=== PATIENT | female | born 1980 | race Hispanic/Latino ===

== ENCOUNTER 2017-01-14 12:09 | Emergency (ER) | payer MEDICAID ==
[2017-01-14 13:06] LABS: Basophils % (Auto) 0.5 % (0.0-1.8); Eosinophils % (Auto) 3.5 % (0.0-4.3); Hematocrit 41.6 % (30.3-42.9); Hemoglobin 13.2 gm/dl (10.1-14.3); Mean Corpuscular HGB Conc 32 % (30-34); Mean Corpuscular Volume 77 fl (79-97); Platelet Count 240 K/mm3 (140-440); Red Blood Count 5.39 M/mm3 (3.65-5.03); Red Cell Distribution Width 17.1 % (13.2-15.2); White Blood Count 9.6 K/mm3 (4.5-11.0)
--- NOTE | 2017-01-14 13:07 | XRay Report ---
AP CHEST: HISTORY: Shortness of breath AP view of the chest demonstrates a normal mediastinal and cardiac contour with clear lungs and normal bony and soft tissue structures. IMPRESSION: Unremarkable AP chest.
[2017-01-14 13:13] LABS: Mean Corpuscular Hemoglobin 25 pg (28-32)
--- NOTE | 2017-01-14 13:17 | Emergency Department Report ---
Entered by KAY BERRIOS, acting as scribe for ABRIL DODGE PA. Chief Complaint: Dyspnea/Respdistress Stated Complaint: PAIN/SWELLING IN LEGS/CHEST/SOB Time Seen by Provider: 01/14/17 12:53 - HPI History of Present Illness: Pt c/o bilateral leg pain and swelling that began 1 weeks ago. Reports SOB that began 3 days ago. Reports intermittent dyspnea. Reports chest pain, which she rates a 10/10 in severity. Reports dizziness. Notes all stated symptoms began intermittently 2 weeks ago. PMHx of obesity, HTN, high cholesterol, and depression. Notes recent diabetes diagnoses with no current medication. Notes compliancy with a diabetic diet. Pt's blood pressure is currently 196/121 in triage. - ROS Review of Systems: All systems are negative unless stated in the HPI above. - Exam Vital Signs: Vital Signs 01/14/17 12:17 Temperature 97.6 F Pulse Rate 109 H Respiratory 22 Rate Blood Pressure 196/121 O2 Sat by Pulse 94 Oximetry Physical Exam: GENERAL: Patient is alert and oriented x 3. No apparent distress, normal gait, atraumatic. LUNGS: Symmetrical with respiration. No wheezing, rales or crackles, CTAB. HEART: Tachycardic. No murmurs, rubs, or gallops. SKIN: Warm and dry. No lesions, ulceration or induration present MSE screening note: Focused history and physical exam performed. Due to findings the following was ordered: ED Medical Decision Making - EKG Data EKG shows normal: sinus rhythm Rate: tachycardia - Medical Decision Making Patient seen by provider in triage area. EKG shows a sinus tachycardic rhythm with a left atrial enlargement. Blood work and UA have been done on patient will be sent in. Patient will be sent to the main ED side for further analysis and treatment by another provider. ED Disposition for MSE Condition: Stable This documentation as recorded by the scribe,KAY BERRIOS,accurately reflects the service I personally performed and the decisions made by me, ABRIL DODGE PA.
[2017-01-14 13:20] LABS: Anion Gap 16 mmol/L; Blood Urea Nitrogen 14 mg/dL (7-17); Calcium 8.8 mg/dL (8.4-10.2); Carbon Dioxide 28 mmol/L (22-30); Chloride 98.7 mmol/L (98-107); Glucose 167 mg/dL (65-100); Sodium 139 mmol/L (137-145)
[2017-01-14 19:37] VITALS: BP 160/86
[2017-01-14] MEDS ORDERED: LASIX PO ONE (20:39)
[2017-01-14] MEDS ORDERED: MORPHINE IM ONE (20:39)
[2017-01-14] MEDS ORDERED: CATAPRES PO ONE (20:40)
--- NOTE | 2017-01-14 20:56 | Emergency Department Report ---
HPI - General Chief Complaint: Dyspnea/Respdistress Time Seen by Provider: 01/14/17 13:16 - HPI HPI: The patient is a 36 of female presents for evaluation of chest pain and bilateral lower leg pain. The patient reports chest pain and bilateral lower leg pain for the past 10 days, her chest pain is sharp in quality, 10/10 in severity, constant for the past one day, exacerbated with movement. Her leg pain has been throbbing quality, 10/10 in severity, exacerbated with ambulation , and associated with mild swelling to the bilateral legs. The patient denies fever, trauma to the chest or legs, dyspnea, syncope, hemoptysis, unilateral leg swelling, calf muscle pain, paresthesias, motor deficit in the legs, oral contraception abuse, history of DVT or PE, history of recent surgery, history of recent cancer. ED Past Medical Hx - Past Medical History Previous Medical History?: Yes Hx Hypertension: Yes Hx Heart Attack/AMI: No Hx Congestive Heart Failure: No Hx Diabetes: No Hx Deep Vein Thrombosis: No Hx Psychiatric Treatment: Yes (depression) Hx Asthma: No Hx COPD: No Hx HIV: No Additional medical history: MORBID OBESITY, hyperlipidemia - Surgical History Past Surgical History?: Yes Hx Coronary Stent: No Hx Pacemaker: No Hx Internal Defibrillator: No Hx Cholecystectomy: Yes Additional Surgical History: X 8 - Social History Smoking Status: Never Smoker Substance Use Type: Prescribed - Medications Home Medications: Home Medications Medication Instructions Recorded Confirmed Last Taken Type ALPRAZolam [Xanax TAB] 1 mg PO BID 09/04/16 09/04/16 09/03/16 History Sertraline [Zoloft] 100 mg PO QDAY 09/04/16 09/04/16 09/03/16 History traZODone [Desyrel] 50 mg PO QHS 09/04/16 09/04/16 09/03/16 History ALBUTEROL Inhaler [ProAir HFA 1 puff IH QID PRN #1 inhalation 09/08/16 Unknown Rx Inhaler] AtorvaSTATin [Lipitor] 10 mg PO QHS #30 tablet 09/08/16 Unknown Rx AtorvaSTATin [Lipitor] 10 mg PO QHS #30 tablet 09/08/16 Unknown Rx Benzonatate [Tessalon Perles] 100 mg PO Q8HR #14 capsule 09/08/16 Unknown Rx Metoprolol [Lopressor TAB] 50 mg PO BID #120 tablet 09/08/16 Unknown Rx oxyCODONE /ACETAMINOPHEN [Percocet 1 tab PO Q6H PRN #10 tablet 09/08/16 Unknown Rx 5/325 mg] Furosemide [Lasix] 20 mg PO QDAY #30 tablet 01/14/17 Unknown Rx HYDROcodone/APAP 5-325 [[place] 1 each PO Q6HR PRN #12 tablet 01/14/17 Unknown Rx 5/325] ED Review of Systems ROS: Stated complaint: PAIN/SWELLING IN LEGS/CHEST/SOB Other details as noted in HPI Constitutional: denies: fever ENT: denies: throat or neck pain Respiratory: denies: shortness of breath Cardiovascular: reports chest pain Endocrine: denies unexplained weight loss or gain Gastrointestinal: denies: abdominal pain, nausea Genitourinary: denies: dysuria Musculoskeletal: reports leg pain and swelling Skin: denies: rash Neurological: denies: headache Hematological/Lymphatic: denies: easy bleeding or easy bruising Psych: denies sadness or hopelessness Physical Exam - Physical Exam Vital Signs: Vital Signs 01/14/17 01/14/17 12:17 19:34 Temperature 97.6 F Pulse Rate 109 H 99 H Respiratory 22 15 Rate Blood Pressure 196/121 Blood Pressure 160/86 [Left] O2 Sat by Pulse 94 97 Oximetry Physical Exam: General: well-nourished, well-developed, no acute distress Head: Normocephalic, atraumatic Eyes: normal sclera ENT: Mucous membranes are pink and moist Neck: trachea midline, neck supple, No neck stiffness, no cervical adenopathy Respiratory: Breath sounds equal bilaterally, no wheezing, rales, or rhonchi Cardio: S1 and S2 present, no murmurs, rubs, gallops, capillary refill is brisk Abdomen: Normoactive bowel sounds, soft abdomen, no rigidity, no guarding or rebound tenderness Musc: 1+ pitting edema of bilateral lower legs Skin: No rash Neuro: no facial drooping, normal speech Psych: Normal affect ED Course Vital Signs 01/14/17 01/14/17 12:17 19:34 Temperature 97.6 F Pulse Rate 109 H 99 H Respiratory 22 15 Rate Blood Pressure 196/121 Blood Pressure 160/86 [Left] O2 Sat by Pulse 94 97 Oximetry ED Medical Decision Making - Lab Data Result diagrams: 01/14/17 12:47 01/14/17 12:47 - Medical Decision Making The patient was seen and examined by myself. The patient is placed on a cardiac monitor technician and continuous pulse ox. On initial evaluation, the patient was found to be in no distress. EKG was negative for findings suggestive of acute cardiac infarct. Labs and imaging are obtained. Chest x-ray is negative for pneumothorax, focal consolidation, pulmonary vascular congestion, pleural effusion, or other obvious acute cardiopulmonary disease process. The patient given po Lasix for her leg swelling and IM morphine for her pain. Lab results were non-concerning including levels of troponin, WBC, hemoglobin, hematocrit, electrolytes, renal function. The patient was reevaluated and reported that their symptoms were markedly improved. As the patient has a KELI risk score less than 2, and a well's score less than 2, the patient is at low risk of ACS or pulmonary emboli etiology of their symptoms. The patient is stable for discharge with outpatient follow-up. The patient is given follow-up and return instructions. The patient expressed understanding and agreed with the plan. The patient is discharged in stable condition. Critical care attestation.: If time is entered above; I have spent that time in minutes in the direct care of this critically ill patient, excluding procedure time. ED Disposition Clinical Impression: Acute chest pain, Leg swelling Disposition: DISCHARGED TO HOME OR SELFCARE Is pt being admited?: No Does the pt Need Aspirin: No Condition: Stable Instructions: Chest Pain (ED), Leg Edema (ED) Prescriptions: Furosemide [Lasix] 20 mg PO QDAY #30 tablet HYDROcodone/APAP 5-325 [[place] 5/325] 1 each PO Q6HR PRN #12 tablet PRN Reason: Pain Referrals: PRIMARY MD SUN [Primary Care Provider] - 3-5 Days EMMA ANDERSON MD [Staff Physician] - 3-5 Days Time of Disposition: 20:41
== END 2017-01-14 22:10 | disposition home or self-care (01) ==
LOC: ED 12:09
DX: R07.9 Chest pain, unspecified (principal); R22.43 Localized swelling, mass and lump, lower limb, bilateral; I10 Essential (primary) hypertension; F32.9 Major depressive disorder, single episode, unspecified; E66.01 Morbid (severe) obesity due to excess calories; E78.5 Hyperlipidemia, unspecified
CPT/HCPCS: 36415; 71020; 80048; 84484; 85025; 93005; 93010; 96372; 99284; J2270

== ENCOUNTER 2017-11-12 06:27 | Day surgery (SDC) | payer MEDICAID ==
[2017-11-12] MEDS ORDERED: WATER FOR IRRIG STERILE IR ONE (07:21)
[2017-11-12] MEDS ORDERED: HURRICAINE ONE 20% TOPICAL SPRAY MM ×2 (07:31→08:14)
[2017-11-12] MEDS ORDERED: NACL 0.9% 1000 ML 1,000 ML IV SCH (08:00)
--- NOTE | 2017-11-12 08:20 | Anesthesia Consultation ---
Anesthesia Consult and Med Hx Date of service: 11/12/17 - Airway Anesthetic Teeth Evaluation: Good ROM Head & Neck: Adequate Mental/Hyoid Distance: Adequate Mallampati Class: Class II Intubation Access Assessment: Probably Good - Pulmonary Exam CTA: Yes - Cardiac Exam Cardiac Exam: RRR - Pre-Operative Health Status ASA Pre-Surgery Classification: ASA3 Proposed Anesthetic Plan: MAC - Pulmonary Hx Pneumonia: Yes Hx Sleep Apnea: Yes (Cpap) - Cardiovascular System Hx Hypertension: Yes - Other Systems Hx Obesity: Yes
[2017-11-12] MEDS ORDERED: DIPRIVAN 10 MG/ML IV ONE ×2 (08:21)
[2017-11-12] MEDS ORDERED: KETALAR ONE (08:21)
--- NOTE | 2017-11-12 08:21 | Anesthesia Day of Surgery ---
Anesthesia Day of Surgery - Day of Surgery Patient Examined: Yes Patient H&P Reviewed: Yes Patient is NPO: Yes Beta Blockers: Yes
--- NOTE | 2017-11-12 08:39 | Operative Report ---
Operative Report Operative Report: OPERATIVE REPORT - EGD DATE 11/12/17 SURGERY: Upper endoscopy. SURGEON: Dr. Kimball GIS SOFTWARE DEVELOPER: Fish Mosqueda DO PRE OP DX: Morbid obesity, dyspepsia POST OP DX: antral polyps, same as preop TYPE OF ANESTHESIA: MAC. ESTIMATED BLOOD LOSS: None. COMPLICATIONS: None. SPECIMENS REMOVED: antral polyp FINDINGS: 1. Small hiatal hernia. 2. antral polyp INDICATIONS:INDICATION FOR PROCEDURE: Patient is a 37-year-old female with a long history of morbid obesity. She is planned to have a weight loss procedure and is here for preoperative planning EGD. PROCEDURE DETAILS: After consent was reviewed, patient was taken back to the operating room where patient was placed in the left lateral decubitus position and a bite block was placed in the mouth. After a time-out was called, MAC anesthesia was initiated. I then passed the endoscope into her oropharynx, into her esophagus, visualized the entire esophagus, which was all within normal limits. I then visualized the stomach and found antral polyps. A biopsy was done on one of the polyps. The first portion of the duodenum showed no abnormalities I could clearly visualize. I then retroflexed the scope in the stomach and visualized the hiatus and I could see a small hiatal hernia. I then desufflated the stomach and removed the endoscope. Patient tolerated procedure well and was transferred to recovery room in good and stable condition.
--- NOTE | 2017-11-12 08:41 | Discharge Summary ---
Providers - Providers Attending physician: JOSH MUHAMMAD Primary care physician: MATILDE COVINGTON Hospitalization Procedures: egd with biopsy Hospital course: 37 y.o. F presented to the EGD area for upper endoscopy. She tolerated the procedure well. She was discharged home the same day. Disposition: - TO HOME OR SELFCARE Core Measure Documentation - Palliative Care Palliative Care/ Comfort Measures: Not Applicable - Core Measures Any of the following diagnoses?: none Exam - Physical Exam Narrative exam: same as prior - Constitutional Vitals: Temp Pulse Resp BP Pulse Ox 97.8 F 101 H 17 188/106 95 11/12/17 07:10 11/12/17 07:10 11/12/17 07:10 11/12/17 07:10 11/12/17 07:10 Plan Additional Instructions: follow up for surgery. Bring cpap Follow up with: MATILDE COVINGTON III, [employer] [Primary Care Provider] - 7 Days
[2017-11-12 12:32] VITALS: BP 188/93
--- NOTE | 2017-11-12 14:07 | Post Anesthesia Evaluation ---
- Post Anesthesia Evaluation Patient Participated: Yes Airway Patent: Yes Stable Respiratory Function: Yes Nausea/Vomiting: No Temp > 96.8F: Yes Pain Manageable: Yes Adequeate Hydration: Yes Anesthesia Complications: No
[2017-11-12] MEDS ORDERED: HURRICAINE ONE 20% TOPICAL SPRAY MM NR (16:00)
== END 2017-11-12 06:28 | disposition home or self-care (01) ==
LOC: GIO 06:27
PROVIDERS: ATTEND Surgery
DX: K29.50 Unspecified chronic gastritis without bleeding (principal); B96.81 Helicobacter pylori [H. pylori] as the cause of diseases classified elsewhere; K44.9 Diaphragmatic hernia without obstruction or gangrene; K31.7 Polyp of stomach and duodenum; G47.30 Sleep apnea, unspecified; I10 Essential (primary) hypertension; E66.01 Morbid (severe) obesity due to excess calories; Z68.45 Body mass index [BMI] 70 or greater, adult; Z99.89 Dependence on other enabling machines and devices
CPT/HCPCS: 43239; 81025; 88305; 88342; J2704; J7030

== ENCOUNTER 2018-05-18 22:09 | Emergency (ER) | payer MEDICAID ==
[2018-05-18 22:37] VITALS: BP 162/100
[2018-05-18 23:47] LABS: Basophils # (Auto) 0.1 K/mm3 (0.0-0.1); Basophils % (Auto) 0.6 % (0.0-1.8); Eosinophils # (Auto) 0.3 K/mm3 (0.0-0.4); Eosinophils % (Auto) 2.2 % (0.0-4.3); Hematocrit 40.8 % (30.3-42.9); Hemoglobin 13.4 gm/dl (10.1-14.3); Lymphocytes % (Auto) 22.7 % (13.4-35.0); Mean Corpuscular HGB Conc 33 % (30-34); Mean Corpuscular Hemoglobin 28 pg (28-32); Mean Corpuscular Volume 85 fl (79-97); Monocytes # (Auto) 0.8 K/mm3 (0.0-0.8); Monocytes % (Auto) 5.9 % (0.0-7.3); Platelet Count 295 K/mm3 (140-440)
[2018-05-19 00:23] LABS: BUN/Creatinine Ratio 17; Blood Urea Nitrogen 10 mg/dL (7-17); Calcium 8.7 mg/dL (8.4-10.2); Hemolysis Index 115
== END 2018-05-18 23:45 | disposition left against medical advice (07) ==
LOC: ED 22:09
DX: R07.89 Other chest pain (principal); Z53.21 Procedure and treatment not carried out due to patient leaving prior to being seen by health care provider
CPT/HCPCS: 36415; 80048; 84484; 84703; 85025; 93005; 93010

== ENCOUNTER 2019-02-09 09:40 | Outpatient (CLI) | payer MEDICAID ==
[2019-02-09 11:18] LABS: Blood Urea Nitrogen 11 mg/dL (7-17)
--- NOTE | 2019-02-09 14:26 | Cat Scan Report ---
CT ABDOMEN PELVIS WITH CONTRAST: HISTORY: Generalized abdominal pain. COMPARISON: none. TECHNIQUE: Helical CT in 1.25mm intervals following IV contrast. Sagittal and coronal reconstructions. FINDINGS: Lung bases: Normal. Liver: Normal. Biliary system: Cholecystectomy. Pancreas: Normal. Spleen: Normal. Kidneys/ureters/bladder: Normal. Adrenal glands: Normal. Aorta: Normal. Intestines: Surgical changes are noted in the proximal stomach, correlate with history. Surgical suture line is also noted in the mid small bowel. There is no evidence for obstruction, free air or focal inflammation. There are scattered diverticula in the distal colon. No inflammatory changes. Appendix: Normal. Pelvic viscera: The uterus is unremarkable. Bilateral Essure devices are identified. A right ovarian cyst measures 4.2 cm. A left ovarian cyst measures 5.2 cm. Ascites: None. Adenopathy: None. Musculoskeletal: Intact. Mild thoracolumbar spondylosis. IMPRESSION: No acute inflammatory process. Surgical changes as described which appear unremarkable. Bilateral ovarian cysts. Mild diverticulosis of the distal colon.
== END 2019-02-09 09:41 | disposition home or self-care (01) ==
LOC: CT 09:40
PROVIDERS: ATTEND Specialist
DX: K57.30 Diverticulosis of large intestine without perforation or abscess without bleeding (principal); N83.202 Unspecified ovarian cyst, left side; N83.201 Unspecified ovarian cyst, right side; M47.815 Spondylosis without myelopathy or radiculopathy, thoracolumbar region; E78.00 Pure hypercholesterolemia, unspecified; I10 Essential (primary) hypertension; E66.9 Obesity, unspecified; E11.9 Type 2 diabetes mellitus without complications; Z98.890 Other specified postprocedural states
CPT/HCPCS: 36415; 74177; 82565; 84520; Q9967

== ENCOUNTER 2021-01-16 02:40 | Emergency (ER) | payer MEDICAID ==
--- NOTE | 2021-01-16 04:23 | XRay Report ---
CLINICAL DATA: Pain - fall TECHNICAL DATA: AP and lateral view. FINDINGS: No pathologic subluxation or acute fracture identified. IMPRESSION: No pathologic subluxation or acute fracture identified. Signer Name: Agustín Hopson MD Signed: 01/16/2021 4:19 AM Workstation Name: [id number]
--- NOTE | 2021-01-16 04:24 | XRay Report ---
CLINICAL DATA: Fall - pain TECHNICAL DATA: AP and lateral views lumbar spine. FINDINGS: The bone mineralization is normal. Vertebral body heights are normal. Intervertebral disc spaces are well maintained except for intervertebral disc space narrowing L4-L5. Pedicles and spinous processes are normal in alignment. SI joints and sacrum are normal. IMPRESSION: Degenerative changes as noted Signer Name: Agustín Hopson MD Signed: 01/16/2021 4:20 AM Workstation Name: [id number]
[2021-01-16] MEDS ORDERED: ACETAMINOPHEN 500 MG TAB PO ONE (05:19)
--- NOTE | 2021-01-16 05:26 | Emergency Department Report ---
ED Fall HPI - General Chief Complaint: Back Pain/Injury Stated Complaint: FELL/BACK PAIN Source: patient Mode of arrival: Ambulatory - History of Present Illness Initial Comments: Patient is a 40-year-old female with a history of hypertension, lkr-nxifpoi-pqyqycosd diabetes, morbid obesity, chronic osteoarthritis, anxiety and depression and hyperlipidemia who presents to the ED with complaint of acute onset persistent severe low back pain and coccygeal pain after she fell off a water slide and landed on her back 2 weeks ago during a birthday green party of a grandchild. Patient states that the pain has been progressively getting worse and especially in the last 2 days she has not been able to sleep because of worsening pain. Patient denies dizziness, syncope, dysuria, urinary frequency and urgency, hematuria, numbness and tingling or weakness of lower extremities bilaterally, urinary retention, bowel incontinence, chest pain or shortness of breath, head or neck injuries and abdominal pain. MD Complaint: fall, other (lower back pain; coccygeal pain) -: Sudden, week(s) (2) Fall From: chair (fell off a water slide) Fall Witnessed: yes, by family Place Fall Occurred: other (PARK) Loss of Consciousness: none Prolonged Down Time?: no Symptoms Prior to Fall: none Location: back (lower ), other (coccygeal area) Severity: severe Severity scale (0 -10): 8 Quality: sharp, aching Context: tripped/slipped Associated Symptoms: denies. denies: headache, neck pain, numbness, weakness, chest paint, shortness of breath, abdominal pain, hematuria, unable to walk, lightheaded, vertigo, confusion - Related Data Home Medications Medication Instructions Recorded Confirmed Last Taken ALPRAZolam [Xanax TAB] 1 mg PO BID 09/04/16 06/10/18 06/09/18 Sertraline [Zoloft] 100 mg PO QDAY 09/04/16 06/10/18 06/09/18 traZODone [Desyrel] 50 mg PO QHS 09/04/16 06/09/18 11/18/17 DULoxetine [Cymbalta] 60 mg PO QDAY 11/12/17 06/09/18 Unknown Losartan [Cozaar] 50 mg PO QDAY 11/12/17 06/10/18 06/09/18 cloNIDine [Catapres] 0.2 mg PO BID 11/12/17 06/09/18 Unknown Ondansetron [Zofran TAB] 4 mg PO TID 06/09/18 06/10/18 06/09/18 Previous Rx's Medication Instructions Recorded Last Taken Type Albuterol Mdi (or & Nicu Only) 1 puff IH QID PRN #1 inhalation 09/08/16 Unknown Rx [ProAir HFA Inhaler] AtorvaSTATin 10 mg PO QHS #30 tablet 09/08/16 06/09/18 Rx Metoprolol [Lopressor TAB] 50 mg PO BID #120 tablet 09/08/16 06/10/18 Rx oxyCODONE /ACETAMINOPHEN [Percocet 1 tab PO Q6H PRN #10 tablet 09/08/16 Unknown Rx 5/325 mg] Acetaminophen [Tylenol] 500 mg PO Q6HR PRN #40 tablet 01/16/21 Unknown Rx Allergies Allergy/AdvReac Type Severity Reaction Status Date / Time aspirin AdvReac Unknown Verified 06/10/18 09:32 ED Review of Systems ROS: Stated complaint: FELL/BACK PAIN Other details as noted in HPI Constitutional: denies: chills, fever Eyes: denies: eye pain, eye discharge, vision change ENT: denies: ear pain, throat pain Respiratory: denies: cough, shortness of breath, wheezing Cardiovascular: denies: chest pain, palpitations Endocrine: no symptoms reported Gastrointestinal: denies: abdominal pain, nausea, diarrhea Genitourinary: denies: urgency, dysuria, discharge Musculoskeletal: back pain (lower back pain), arthralgia (coccygeal pain). d enies: joint swelling Skin: denies: rash, lesions Neurological: denies: headache, weakness, paresthesias Psychiatric: denies: anxiety, depression Hematological/Lymphatic: denies: easy bleeding, easy bruising ED Past Medical Hx - Past Medical History Previous Medical History?: Yes Hx Hypertension: Yes Hx Heart Attack/AMI: No Hx Congestive Heart Failure: No Hx Diabetes: Yes (PRE, DIET CONTROLLED) Hx Deep Vein Thrombosis: No Hx Liver Disease: No Hx Renal Disease: No Hx Arthritis: Yes Hx Seizures: No Hx Psychiatric Treatment: Yes (depression) Hx Asthma: No Hx COPD: No Hx HIV: No Additional medical history: MORBID OBESITY, hyperlipidemia - Surgical History Past Surgical History?: Yes Hx Coronary Stent: No Hx Cholecystectomy: Yes Additional Surgical History: X 8, Gastric Bypass - Social History Smoking Status: Current Every Day Smoker Substance Use Type: None - Medications Home Medications: Home Medications Medication Instructions Recorded Confirmed Last Taken Type ALPRAZolam [Xanax TAB] 1 mg PO BID 09/04/16 06/10/18 06/09/18 History Sertraline [Zoloft] 100 mg PO QDAY 09/04/16 06/10/18 06/09/18 History traZODone [Desyrel] 50 mg PO QHS 09/04/16 06/09/18 11/18/17 History Albuterol Mdi (or & Nicu Only) 1 puff IH QID PRN #1 inhalation 09/08/16 06/10/18 Unknown Rx [ProAir HFA Inhaler] AtorvaSTATin 10 mg PO QHS #30 tablet 09/08/16 06/10/18 06/09/18 Rx Metoprolol [Lopressor TAB] 50 mg PO BID #120 tablet 09/08/16 06/10/18 06/10/18 Rx oxyCODONE /ACETAMINOPHEN [Percocet 1 tab PO Q6H PRN #10 tablet 09/08/16 06/10/18 Unknown Rx 5/325 mg] DULoxetine [Cymbalta] 60 mg PO QDAY 11/12/17 06/09/18 Unknown History Losartan [Cozaar] 50 mg PO QDAY 11/12/17 06/10/18 06/09/18 History cloNIDine [Catapres] 0.2 mg PO BID 11/12/17 06/09/18 Unknown History Ondansetron [Zofran TAB] 4 mg PO TID 06/09/18 06/10/18 06/09/18 History Acetaminophen [Tylenol] 500 mg PO Q6HR PRN #40 tablet 01/16/21 Unknown Rx ED Physical Exam - General Limitations: No Limitations General appearance: alert, in no apparent distress - Head Head exam: Present: atraumatic, normocephalic, normal inspection - Eye Eye exam: Present: normal appearance, PERRL, EOMI Pupils: Present: normal accommodation - ENT ENT exam: Present: normal exam, normal orophraynx, mucous membranes moist, TM's normal bilaterally, normal external ear exam - Neck Neck exam: Present: normal inspection, full ROM - Respiratory Respiratory exam: Present: normal lung sounds bilaterally. Absent: respiratory distress, wheezes, rales, rhonchi, chest wall tenderness, accessory muscle use, decreased breath sounds, prolonged expiratory - Cardiovascular Cardiovascular Exam: Present: regular rate, normal rhythm, normal heart sounds. Absent: systolic murmur, diastolic murmur, rubs, gallop - GI/Abdominal GI/Abdominal exam: Present: soft, normal bowel sounds. Absent: tenderness, guarding, hyperactive bowel sounds, hypoactive bowel sounds, organomegaly - Extremities Exam Extremities exam: Present: normal inspection, full ROM, normal capillary refill. Absent: tenderness - Back Exam Back exam: Present: normal inspection, full ROM, tenderness (Palpable lumbosacral paraspinal musculoskeletal tenderness; palpable coccygeal tenderness), muscle spasm, paraspinal tenderness, vertebral tenderness - Neurological Exam Neurological exam: Present: alert, oriented X3, CN II-XII intact, normal gait, reflexes normal - Psychiatric Psychiatric exam: Present: normal affect, normal mood - Skin Skin exam: Present: warm, dry, intact, normal color. Absent: rash ED Course Vital Signs 01/16/21 03:02 Temperature 98.3 F Pulse Rate 82 Respiratory 18 Rate Blood Pressure 150/92 O2 Sat by Pulse 97 Oximetry ED Medical Decision Making - Radiology Data Radiology results: report reviewed, [place] [address] XRay Report Signed Patient: BEATRIS LEYVA MR#: [id number] : 1980 Acct:[id number] Age/Sex: 40 / F ADM Date: 01/16/21 Loc: ED Attending Dr: Ordering Physician: KYLE GARNICA Date of Service: 01/16/21 Procedure(s): XR spine sacrum/coccyx 2+V Accession Number(s): [id number] cc: KYLE GARNICA Fluoro Time In Minutes: CLINICAL DATA: Pain - fall TECHNICAL DATA: AP and lateral view. FINDINGS: No pathologic subluxation or acute fracture identified. IMPRESSION: No pathologic subluxation or acute fracture identified. Signer Name: Agustín Hopson MD Signed: 01/16/2021 4:19 AM Workstation Name: [id number] Transcribed By: STEPHANIE Dictated By: Agustín Hopson MD Electronically Authenticated By: Agustín Hopson MD Signed Date/Time: 01/16/21418 DD/ 7 TD/TT: [facility] [address] [place] [address] XRay Report Signed Patient: BEATRIS LEYVA MR#: [id number] : 1980 Acct:[id number] Age/Sex: 40 / F ADM Date: 01/16/21 Loc: ED Attending Dr: Ordering Physician: KYLE GARNICA Date of Service: 01/16/21 Procedure(s): XR spine lumbosacral 2-3V Accession Number(s): [id number] cc: KYLE GARNICA Fluoro Time In Minutes: CLINICAL DATA: Fall - pain TECHNICAL DATA: AP and lateral views lumbar spine. FINDINGS: The bone mineralization is normal. Vertebral body heights are normal. Intervertebral disc spaces are well maintained except for intervertebral disc space narrowing L4-L5. Pedicles and spinous processes are normal in alignment. SI joints and sacrum are normal. IMPRESSION: Degenerative changes as noted Signer Name: Agustín Hopson MD Signed: 01/16/2021 4:20 AM Workstation Name: [id number] Transcribed By: WG Dictated By: Agustín Hopson MD Electronically Authenticated By: Agustín Hopson MD Signed Date/Time: 01/16/21419 DD/ 8 TD/TT: Print - Medical Decision Making This is a 40-year-old female with a history of hypertension, tby-mqrbyzk-ccbysndwn diabetes, morbid obesity, chronic osteoarthritis, anxiety and depression and hyperlipidemia who presents to the ED with complaint of acute onset persistent severe low back pain and coccygeal pain after she fell off a water slide and landed on her back 2 weeks ago during a birthday green party of a grandchild. Patient states that the pain has been progressively getting worse and especially in the last 2 days she has not been able to sleep because of worsening pain. In the ED, patient is alert and oriented x3 and is not in any distress. Patient was treated for pain in the ED and L-spine x-ray showed no acute fractures or subluxations but chronic degenerative lumbar disc disease. The coccygeal x-ray showed no acute fractures or subluxations but degenerative disc disease. Patient's injuries are likely musculoskeletal based on the history and physical exam findings as well as imaging reports. Patient was therefore discharged home on pain medications and advised to follow-up with her primary care physician in 5 to 7 days for reevaluation or return to the ED immediately if symptoms get worse. - Differential Diagnosis coccygeal fracture; lumbar contusion; Back injury; Muscle spasm; Critical care attestation.: If time is entered above; I have spent that time in minutes in the direct care of this critically ill patient, excluding procedure time. ED Disposition Clinical Impression: Spasm of muscle of lower back Coccygeal contusion Qualifiers: Encounter type: initial encounter Qualified Code(s): S30.0XXA - Contusion of lower back and pelvis, initial encounter Lumbar contusion Qualifiers: Encounter type: initial encounter Qualified Code(s): S30.0XXA - Contusion of lower back and pelvis, initial encounter Disposition: DC-01 TO HOME OR SELFCARE Is pt being admited?: No Does the pt Need Aspirin: No Condition: Stable Instructions: Muscle Cramps and Spasms, [id number]-[id number], Contusion, Qdia-wr-[id number], Tailbone Injury, Ptmh-ih-[id number] Additional Instructions: The L-spine x-ray and the coccygeal x-ray showed no acute fractures or subluxations but degenerative disc disease. Therefore take pain medications with food, drink plenty of fluids and follow-up with your primary care physician in 5 to 7 days for reevaluation. Return to the ED immediately if symptoms get worse. Prescriptions: Acetaminophen [Tylenol] 500 mg PO Q6HR PRN #40 tablet PRN Reason: Pain , Severe (7-10) Referrals: [facility] [Provider Group] - 3-5 Days Time of Disposition: 05:27 Print Language: AZERI
[2021-01-16 06:30] VITALS: BP 140/84
== END 2021-01-16 06:30 | disposition home or self-care (01) ==
LOC: ED 02:40
DX: S30.0XXA Contusion of lower back and pelvis, initial encounter (principal); M62.830 Muscle spasm of back; I10 Essential (primary) hypertension; E11.9 Type 2 diabetes mellitus without complications; M19.91 Primary osteoarthritis, unspecified site; F32.9 Major depressive disorder, single episode, unspecified; F17.200 Nicotine dependence, unspecified, uncomplicated; Z98.890 Other specified postprocedural states; Z79.899 Other long term (current) drug therapy; Z88.6 Allergy status to analgesic agent; W01.0XXA Fall on same level from slipping, tripping and stumbling without subsequent striking against object, initial encounter; Y93.89 Activity, other specified; Y92.89 Other specified places as the place of occurrence of the external cause; Y99.8 Other external cause status
CPT/HCPCS: 72100; 72220

== ENCOUNTER 2022-04-03 22:18 | Emergency (ER) | payer MEDICAID ==
[2022-04-03 23:02] VITALS: BP 169/120
--- NOTE | 2022-04-03 23:47 | XRay Report ---
CHEST 2 VIEWS INDICATION / CLINICAL INFORMATION: Chest Pain. COMPARISON: None available. FINDINGS: SUPPORT DEVICES: None. HEART / MEDIASTINUM: No significant abnormality. LUNGS / PLEURA: No significant pulmonary or pleural abnormality. No pneumothorax. ADDITIONAL FINDINGS: No significant additional findings. IMPRESSION: 1. No acute findings. Signer Name: Jonas Bundy MD Signed: 04/03/2022 11:42 PM Workstation Name: [id number]
[2022-04-03 23:57] LABS: Basophils # (Auto) 0.1 K/mm3 (0.0-0.1); Basophils % (Auto) 0.5 % (0.0-1.8); Eosinophils # (Auto) 0.4 K/mm3 (0.0-0.4); Hematocrit 39.3 % (30.3-42.9); Lymphocytes # (Auto) 3.4 K/mm3 (1.2-5.4); Lymphocytes % (Auto) 31.8 % (13.4-35.0); Mean Corpuscular HGB Conc 33 % (30-34); Mean Corpuscular Volume 86 fl (79-97); Monocytes # (Auto) 0.9 K/mm3 (0.0-0.8); Monocytes % (Auto) 8.5 % (0.0-7.3); Platelet Count 246 K/mm3 (140-440); Red Blood Count 4.56 M/mm3 (3.65-5.03); Red Cell Distribution Width 15.4 % (13.2-15.2)
[2022-04-04 00:33] LABS: Blood Urea Nitrogen 4 mg/dL (7-17); Calcium 8.5 mg/dL (8.4-10.2); Hemolysis Index 2
[2022-04-04 00:34] LABS: BUN/Creatinine Ratio 8
--- NOTE | 2022-04-04 13:16 | Electrocardiograph Report ---
[facility] Test Date: 2022-04-03 Test Time: 23:07:44 Pat Name: BEATRIS LEYVA Department: Room: Gender: F Traffic Engineer: TECH : 1980 Requested By: JACOBO PATEL Order Number: [id number] Reading MD: Venkat Villanueva Measurements Intervals [place] Rate: 84 P: -6 IA: 147 QRS: 22 QRSD: 80 T: 40 QT: 372 QTc: 441 Interpretive Statements Sinus rhythm Poor R wave progression consider anterior infarct, old No previous ECG available for comparison Electronically Signed On 04-04-2022 13:15:44 EDT by Venkat Villanueva
== END 2022-04-04 00:10 | disposition left against medical advice (07) ==
LOC: ED 22:18
DX: R07.9 Chest pain, unspecified (principal); M54.2 Cervicalgia; Z53.21 Procedure and treatment not carried out due to patient leaving prior to being seen by health care provider
CPT/HCPCS: 36415; 71046; 80048; 84484; 85025; 93005